=== PATIENT | male | born 1960 | race Caucasian/White ===

== ENCOUNTER 2020-02-03 19:21 | Emergency (ER) | payer OTHER ==
[~2020-02-03] VITALS: Ht 170.2 cm; Wt 65.6 kg
--- NOTE | 2020-02-03 19:35 | NUR ---
Patient presents to ER c/o "severe heart burn." Patient states it started approx 4-5 hours ago. C/o discomfort up his back and every so often in his "gut." Patient states he is currently being treated for jaundice. . Patient is in NAD. Respirations even and unlabored.
--- NOTE | 2020-02-03 19:38 | NUR ---
Patient denies N/V, fevers, SOB, CP.
[2020-02-03] MEDS ORDERED: FAMOTIDINE 20 MG TABLET ONE (19:54)
[2020-02-03] MEDS ORDERED: MAALOX/HYOSCYAMINE/LIDOCAINE 45 ML BTL PO ONE (20:00)
[2020-02-03] MEDS ORDERED: FAMOTIDINE 20 MG TABLET PO ONE (20:00)
[2020-02-03 20:26] LABS: MEAN CORPUSCULAR HEMOGLOBIN 33.7 pg (27.5-34.5); MEAN CORPUSCULAR HGB CONC 34.3 g/dL (33.2-36.2); MEAN PLATELET VOLUME 7.5 fL (7.4-10.4); PLATELET COUNT 636 x10^3/uL (130-400); RED CELL DISTRIBUTION WIDTH 13.6 % (9.4-14.8)
[2020-02-03 20:28] LABS: MD YES
[2020-02-03] MEDS ORDERED: SODIUM CHLORIDE FLUSH 10ML SYR IVF ONE (20:30)
[2020-02-03 20:36] LABS: ALANINE AMINOTRANSFERASE 491 U/L (12-78); ALBUMIN 2.2 g/dL (3.4-5.0); ANION GAP 6 mmol/L (5-15); CALCIUM 8.1 mg/dL (8.5-10.1); CHLORIDE 103 mmol/L (98-107); CREATININE 0.94 mg/dL (0.7-1.3)
[2020-02-03] MEDS ORDERED: MORPHINE SULFATE 4 MG/ML, 1ML ONE ×2 (20:37→21:34)
[2020-02-03 20:40] LABS: ALKALINE PHOSPHATASE 246 U/L (45-117); BILIRUBIN,TOTAL 3.1 mg/dL (0.2-1.0); TOTAL PROTEIN 7.6 g/dL (6.4-8.2); TROPONIN I < 0.015 ng/mL (0.000-0.045)
[2020-02-03] MEDS: MORPHINE SULFATE 4 MG/ML, 1ML IVPush PRN ×2 (20:44→21:36)
[2020-02-03] MEDS ORDERED: MAALOX/HYOSCYAMINE/LIDOCAINE 45 ML BTL ONE (20:45)
[2020-02-03] MEDS ORDERED: OMNIPAQUE 350 MG/ML, 75ML BOTTLE ONE (21:08)
[2020-02-03 21:40] LABS: BAND#(MANUAL) 0.08 x10^3/uL; BANDS%(MANUAL) 1 % (0-7); EOS#(MANUAL) 0.08 x10^3/uL (0.0-0.4); EOS% (MANUAL) 1 % (1-7); LYMPH#(MANUAL) 2.02 x10^3/uL (1-3.4); LYMPHS% (MANUAL) 24 % (22-44); MONOS#(MANUAL) 1.18 x10^3/uL (0.3-2.7); MONOS% (MANUAL) 14 % (2-9); SEG#(MANUAL) 5.04 x10^3/uL (1.8-6.8); SEGS% (MANUAL) 60 % (42-75)
[2020-02-03 21:41] LABS: <PLATELET ESTIMATE> INCREASED; <PLT MORPHOLOGY> NORMAL PLT MORPH; <RBC MORPHOLOGY> NORMAL
[2020-02-03] MEDS ORDERED: HYDROmorphone 2 MG/ML, 1ML ONE (23:19)
--- NOTE | 2020-02-03 23:22 | NUR ---
Patient still c/o pain. Medicated patient per jun. US at bedside.
[2020-02-03] MEDS ORDERED: HYDROmorphone 2 MG/ML, 1ML IVPush PRN (23:30)
--- NOTE | 2020-02-04 00:04 | NUR ---
Patient states he has pain relief after the last dose of meds. US complete; awaiting results.
--- NOTE | 2020-02-04 01:14 | NUR ---
Report given to MATT Chow. Patient care transferred.
[2020-02-04 02:03] VITALS: BP 120/84
--- NOTE | 2020-02-04 02:05 | NUR ---
PT RESTING ON GURNEY WITH MONITORING IN PLACE, REPORTS DECRESED PAIN. CONCERNED ABOUT PAIN RETURNING. ALL SAFETY MEASURES IN PLACE, FAMILY AT BS FOR SUPPORT.
== END 2020-02-04 02:31 | disposition home or self-care (01) ==
LOC: ED 21:11
DX: K82.8 Other specified diseases of gallbladder (principal); M54.6 Pain in thoracic spine; R94.5 Abnormal results of liver function studies; R94.31 Abnormal electrocardiogram [ECG] [EKG]
CPT/HCPCS: 36415; 71275; 74175; 76700; 80053; 80074; 83690; 84484; 85025; 93005; 96374; 96375; 96376; 99285; J1170; J2270; Q9967